=== PATIENT | male | born 1965 | race African-American/Black ===

== ENCOUNTER 2017-02-22 14:05 | Emergency (ER) | payer OTHER ==
[2017-02-22] MEDS ORDERED: Phenergan/Codeine 10-6.25mg/5ml UDCUP ONE (19:27)
[2017-02-22] MEDS ORDERED: predniSONE 20 MG TAB ONE (19:28)
[2017-02-22] MEDS ORDERED: AMOXicillin 250 MG CAP ONE (19:28)
--- NOTE | 2017-02-22 19:48 | RAD ---
CHEST ONE VIEW: 02/22/17 HISTORY: Cough and congestion. Heart size and mediastinum are within normal limits. The lungs are clear of infiltrates. No significa nt bony findings. IMPRESSION: No active intrathoracic disease. POS: [facility]
== END 2017-02-22 19:57 | disposition home or self-care (01) ==
LOC: MADERS 14:05
DX: J20.9 Acute bronchitis, unspecified (principal); I10 Essential (primary) hypertension; Z87.891 Personal history of nicotine dependence
CPT/HCPCS: 71010; J7506

== ENCOUNTER 2018-09-19 10:04 | Emergency (ER) | payer OTHER ==
--- NOTE | 2018-09-19 10:51 | RAD ---
PA AND LATERAL VIEWS CHEST: Date: 09/19/18 FINDINGS: Comparison made with exam of 02/22/17. The heart size is normal. The lungs are expanded without focal areas of consolidation, pneumothoraces , or pleural effusions. No acute osseous abnormalities are seen. IMPRESSION: No radiographic evidence of acute cardiopulmonary process. POS: [facility]
== END 2018-09-19 11:00 | disposition home or self-care (01) ==
LOC: MADERS 10:04
DX: J20.9 Acute bronchitis, unspecified (principal); B97.7 Papillomavirus as the cause of diseases classified elsewhere; I10 Essential (primary) hypertension; Z79.899 Other long term (current) drug therapy; Z87.891 Personal history of nicotine dependence
CPT/HCPCS: 71046

== ENCOUNTER 2018-10-29 02:12 | Emergency (ER) | payer OTHER ==
[2018-10-29 03:01] LABS: #Basophils 0.1 thou/uL (0.0-0.2); #Eosinphils 0.1 thou/uL (0.0-0.7); #Lymphocytes 0.9 thou/uL (1.20-3.40); #Monocytes 0.5 thou/uL (0.11-0.59); #Neutrophils 2.9 thou/uL (1.40-6.50); %Basophils 2.2 % (0.0-1.0); %Eosinophils 2.8 % (0.0-10.0); %Lymphocytes 19.3 % (21.0-51.0); %Monocytes 10.7 % (0.0-10.0); %Neutrophils 65.1 % (42.0-75.0); Hemoglobin 12.7 g/dL (14.0-18.0); Mean Corpuscular HGB CONC 32.3 g/dL (32.0-36.0); Mean Corpuscular Hemoglobin 28.6 pg (27.0-31.0); Mean Corpuscular Volume 88.4 fL (78.0-98.0); Mean Platelet Volume 6.9 fL (7.4-10.4); Platelet Count 204 thou/uL (130-400); RBC Distribution Width 12.7 % (11.5-14.5); Red Blood Cell (RBC) Count 4.44 mill/uL (4.70-6.10); White Blood Cell (WBC) Count 4.4 thou/uL (4.8-10.8)
[2018-10-29] MEDS ORDERED: Promethazine DM 6.25-15mg/5ml 120 ML BOT ONE (03:01)
[2018-10-29] MEDS ORDERED: cefTRIAXone\\ROCEPHIN 1 GM VIAL ONE ×2 (03:12→03:24)
[2018-10-29] MEDS ORDERED: methylPREDNISolone Sod Succ/PF 125 MG/2 ML VIAL ONE (03:12)
[2018-10-29 03:18] LABS: ALT (SGPT) 17 U/L (8-55); AST (SGOT) 21 U/L (5-34); Alkaline Phosphatase 57 U/L (40-150); Anion Gap 13 mmol/L (10-20); BUN (Urea Nitrogen) 14 mg/dL (8.4-25.7); Bilirubin, Total 0.4 mg/dL (0.2-1.2); CK (CPK) 290 U/L (30-200); Calc. Creatinine Clearance 0 mL/min (70-130); Calcium 8.5 mg/dL (7.8-10.44); Carbon Dioxide 23 mmol/L (22-29); Chloride 105 mmol/L (98-107); Estimated GFR-MDRD 86; Globulin 3.2 g/dL (2.4-3.5); Glucose 107 mg/dL (70-105); Protein, Total 7.2 g/dL (6.0-8.3); Sodium 137 mmol/L (136-145)
[2018-10-29] MEDS ORDERED: Sodium Chloride 0.9% 250 ML 250 ML ONE (03:25)
--- NOTE | 2018-10-29 09:03 | RAD ---
CHEST 1 VIEW PORTABLE: Date: 10/29/18 HISTORY: Cough. COMPARISON: 09/19/18. FINDINGS: Heart size is normal. The lungs are clear. No pneumonia, edema, or pleural effusion. IMPRESSION: No acute intrathoracic disease. POS: [facility]
== END 2018-10-29 04:22 | disposition home or self-care (01) ==
LOC: MADERS 02:12
DX: J44.1 Chronic obstructive pulmonary disease with (acute) exacerbation (principal); I10 Essential (primary) hypertension; Z87.891 Personal history of nicotine dependence
CPT/HCPCS: 71045; 80053; 82550; 85025; 87804; 96365; 96375; J0696; J2930; J7050; J7620

== ENCOUNTER 2019-01-08 09:49 | Outpatient (CLI) | payer OTHER ==
--- NOTE | 2019-01-08 10:03 | RAD ---
2 view chest: [01/08/2019] Comparion:09/19/2018 HISTORY: Syncope FINDINGS: Heart and mediastinal contours are grossly unremarkable. No pneumothorax or pleural fluid. No focal consolidation or alveolar edema. IMPRESSION: No acute findings.
== END 2019-01-08 09:50 | disposition home or self-care (01) ==
LOC: MADRAD 09:49
PROVIDERS: ATTEND Family Medicine
DX: R55 Syncope and collapse (principal)
CPT/HCPCS: 71046

== ENCOUNTER 2019-03-03 09:13 | Emergency (ER) | payer OTHER ==
--- NOTE | 2019-03-19 10:28 | ER ---
DATE OF SERVICE: ADDENDUM: HISTORY OF PRESENT ILLNESS: Cough for the last week. No fevers or chills. Saw 3 weeks ago, but does not believe that is related to this visit. The patient does have some sinus congestion and frontal headache that is mild. He also notes some chest pain due to coughing so much. No chest pain at rest and no dyspnea on exertion. No pain when not coughing. He also has a sore throat. Would like a cough syrup that he has gotten in the past and this has worked well for him. No fevers or chills. Job ID: [id number]
== END 2019-03-03 10:12 | disposition home or self-care (01) ==
LOC: MADERS 09:13
DX: J01.90 Acute sinusitis, unspecified (principal); I10 Essential (primary) hypertension; Z87.891 Personal history of nicotine dependence
CPT/HCPCS: 99283

== ENCOUNTER 2019-05-22 14:53 | Outpatient (CLI) | payer OTHER ==
--- NOTE | 2019-05-22 15:30 | RAD ---
TWO VIEWS CHEST: HISTORY: COPD, acute bronchitis. COMPARISON: 01/08/2019. FINDINGS: Cardiac silhouette and pulmonary vasculature are within normal limits. The lungs remain clear. Ther e has been no interval change from the prior exam. IMPRESSION: No acute cardiopulmonary process. POS: [facility]
== END 2019-05-22 14:54 | disposition home or self-care (01) ==
LOC: MADRAD 14:53
PROVIDERS: ATTEND Family Medicine
DX: J44.0 Chronic obstructive pulmonary disease with (acute) lower respiratory infection (principal); J20.9 Acute bronchitis, unspecified
CPT/HCPCS: 71046

== ENCOUNTER 2020-11-16 06:21 | Outpatient (CLI) | payer OTHER ==
[2020-11-16 06:59] LABS: #Basophils 0.1 thou/uL (0.0-0.2); #Eosinphils 0.2 thou/uL (0.0-0.7); #Lymphocytes 1.1 thou/uL (1.20-3.40); #Monocytes 0.5 thou/uL (0.11-0.59); #Neutrophils 3.4 thou/uL (1.40-6.50); %Basophils 2.3 % (0.0-1.0); %Monocytes 8.8 % (0.0-10.0); %Neutrophils 63.9 % (42.0-75.0); Hemoglobin 13.9 g/dL (14.0-18.0); Mean Corpuscular HGB CONC 30.6 g/dL (32.0-36.0); Mean Corpuscular Hemoglobin 28.8 pg (27.0-31.0); Mean Corpuscular Volume 94.1 fL (78.0-98.0); Mean Platelet Volume 7.2 fL (7.4-10.4); Platelet Count 267 thou/uL (130-400); RBC Distribution Width 12.8 % (11.5-14.5); Red Blood Cell (RBC) Count 4.82 mill/uL (4.70-6.10); White Blood Cell (WBC) Count 5.4 thou/uL (4.8-10.8)
[2020-11-16 07:16] LABS: ALT (SGPT) 25 U/L (8-55); AST (SGOT) 27 U/L (5-34); Alkaline Phosphatase 65 U/L (40-110); Anion Gap 14 mmol/L (10-20); BUN (Urea Nitrogen) 15 mg/dL (8.4-25.7); Bilirubin, Total 0.5 mg/dL (0.2-1.2); Calc. Creatinine Clearance 0 mL/min (70-130); Calcium 9.2 mg/dL (7.8-10.44); Carbon Dioxide 22 mmol/L (22-29); Cardiac Risk 6.1 (Less than 4.5); Chloride 107 mmol/L (98-107); Cholesterol 165 mg/dl (< 200 Desired); Globulin 3.2 g/dL (2.4-3.5); Glucose 105 mg/dL (70-105); HDL Cholesterol 27 mg/dL (>60 Neg Risk); LDL Cholesterol, Calculated 114 mg/dL; Potassium 4.3 mmol/L (3.5-5.1); Protein, Total 7.2 g/dL (6.0-8.3); Sodium 139 mmol/L (136-145); Triglycerides 122 mg/dL (Less than 150)
== END 2020-11-16 06:22 | disposition home or self-care (01) ==
LOC: MADLAB 06:21
PROVIDERS: ATTEND Family Medicine
DX: Z00.01 Encounter for general adult medical examination with abnormal findings (principal)
CPT/HCPCS: 80053; 80061; 85025; G0103

== ENCOUNTER 2021-04-28 04:45 | Emergency (ER) | payer BC ==
[2021-04-28] MEDS ORDERED: Benzonatate 100 MG CAP ONE (05:32)
[2021-04-28] MEDS ORDERED: guaiFENesin/Codeine Phosphate 100 mg/10 mg 5 ml UD Cup ONE (05:58)
[2021-04-28 07:11] LABS: ALT (SGPT) 15 U/L (8-55); AST (SGOT) 19 U/L (5-34); Albumin 3.8 g/dL (3.5-5.0); Alkaline Phosphatase 65 U/L (40-110); Anion Gap 14 mmol/L (10-20); BUN (Urea Nitrogen) 14 mg/dL (8.4-25.7); Bilirubin, Total 0.3 mg/dL (0.2-1.2); Calc. Creatinine Clearance 0 mL/min (70-130); Calcium 8.7 mg/dL (7.8-10.44); Carbon Dioxide 22 mmol/L (22-29); Cardiac Risk 5.5 (Less than 4.5); Chloride 109 mmol/L (98-107); Cholesterol 148 mg/dl (< 200 Desired); Globulin 3.1 g/dL (2.4-3.5); Glucose 120 mg/dL (70-105); HDL Cholesterol 27 mg/dL (>60 Neg Risk); LDL Cholesterol, Calculated 100 mg/dL; Potassium 4.3 mmol/L (3.5-5.1); Protein, Total 6.9 g/dL (6.0-8.3); Sodium 141 mmol/L (136-145); Triglycerides 105 mg/dL (Less than 150)
[2021-04-28 17:22] LABS: SARS-CoV-2 PCR by NAA Not Detected (NotDetected)
== END 2021-04-28 06:11 | disposition home or self-care (01) ==
LOC: MADERS 04:45
DX: J44.1 Chronic obstructive pulmonary disease with (acute) exacerbation (principal); R05.9 Cough, unspecified; T46.5X5A Adverse effect of other antihypertensive drugs, initial encounter; I10 Essential (primary) hypertension; Z87.891 Personal history of nicotine dependence; Z20.822 Contact with and (suspected) exposure to COVID-19
CPT/HCPCS: 71045; 80053; 80061; 87804; 96372; J1040; J7620; U0003; U0005

== ENCOUNTER 2021-08-12 22:20 | Emergency (ER) | payer BC ==
[2021-08-12] MEDS ORDERED: methylPREDNISolone Sod Succ/PF 125 MG/2 ML VIAL ONE (23:05)
[2021-08-12] MEDS ORDERED: Magnesium 2 GM/50 ML BAG (IN WATER) ONE (23:05)
[2021-08-12] MEDS ORDERED: Aspirin Chewable 81 MG TAB ONE (23:05)
[2021-08-12] MEDS ORDERED: Sodium Chloride 0.9% 100 ML ONE (23:06)
[2021-08-12] MEDS ORDERED: cefTRIAXone\\ROCEPHIN 1 GM VIAL ONE (23:06)
[2021-08-12] MEDS ORDERED: Azithromycin 500 MG VIAL ONE (23:07)
[2021-08-12] MEDS ORDERED: Sodium Chloride 0.9% 250 ML 250 ML ONE (23:07)
[2021-08-12 23:33] LABS: Band 3 % (5-11); Eosinophils 1 % (0-10); Lymphocytes 28 % (21-51); MDiff Complete? YES; Mean Corpuscular HGB CONC 31.1 g/dL (32.0-36.0); Mean Corpuscular Hemoglobin 27.5 pg (27.0-31.0); Mean Corpuscular Volume 88.5 fL (78.0-98.0); Mean Platelet Volume 8.4 fL (7.4-10.4); Monocytes 3 % (0-10); Neutrophil 65 % (42-75); Platelet Count 221 thou/uL (130-400); Platelet Morphology Comment Appears Adequate; RBC Distribution Width 12.6 % (11.5-14.5); RBC Morphology Normal; Red Blood Cell (RBC) Count 4.72 mill/uL (4.70-6.10); White Blood Cell (WBC) Count 5.6 thou/uL (4.8-10.8)
[2021-08-12 23:37] LABS: ALT (SGPT) 15 U/L (8-55); AST (SGOT) 19 U/L (5-34); Albumin 3.9 g/dL (3.5-5.0); Alkaline Phosphatase 59 U/L (40-110); Anion Gap 17 mmol/L (10-20); BUN (Urea Nitrogen) 17 mg/dL (8.4-25.7); Bilirubin, Total 0.3 mg/dL (0.2-1.2); CK (CPK) 382 U/L (30-200); Calc. Creatinine Clearance 0 mL/min (70-130); Calcium 9.2 mg/dL (7.8-10.44); Carbon Dioxide 22 mmol/L (22-29); Chloride 104 mmol/L (98-107); Globulin 3.4 g/dL (2.4-3.5); Glucose 108 mg/dL (70-105); Potassium 4.1 mmol/L (3.5-5.1); Protein, Total 7.3 g/dL (6.0-8.3); Sodium 139 mmol/L (136-145)
[2021-08-12 23:47] LABS: SARS-CoV-2 NAA Rapid Test DETECTED (NotDetected)
[2021-08-13 00:39] LABS: Bilirubin Negative (Negative); Blood, Urine Negative (Negative); Clarity Clear (Clear); Glucose, Urine (Dipstick) Negative (Negative); Ketone, Urine Negative (Negative); Leukocyte Negative (Negative); Nitrite Negative (Negative); Protein, Urine (Dipstick) Negative (Neg-Trace); Specific Gravity, Urine 1.025 (1.005-1.030); Urobilinogen 0.2 mg/dL (Less than 2); pH, Urine 5.5 (5.0-9.0)
== END 2021-08-13 01:00 | disposition home or self-care (01) ==
LOC: MADERS 22:20
DX: U07.1 COVID-19 (principal); J44.1 Chronic obstructive pulmonary disease with (acute) exacerbation; I10 Essential (primary) hypertension; J44.9 Chronic obstructive pulmonary disease, unspecified; Z87.891 Personal history of nicotine dependence; Z79.899 Other long term (current) drug therapy
CPT/HCPCS: 71045; 80053; 81003; 82550; 83605; 84484; 85025; 87040; 87086; 93005; 94640; 94760; 96365; 96367; 96375; J0456; J0696; J2930; J3475; J3490; J7050; J7620

== ENCOUNTER 2023-03-29 10:47 | Outpatient (CLI) | payer OTHER | END 2023-03-29 10:48 | disposition home or self-care (01) | LOC: MADRAD 10:47 | PROVIDERS: ATTEND Internal Medicine | DX: U07.1 COVID-19 (principal) | CPT/HCPCS: 71046 ==

== ENCOUNTER 2023-04-26 19:08 | Emergency (ER) | payer OTHER ==
[2023-04-26] MEDS ORDERED: Benzonatate 100 MG CAP ONE (19:42)
== END 2023-04-26 19:48 | disposition home or self-care (01) ==
LOC: MADERS 19:08
DX: J06.9 Acute upper respiratory infection, unspecified (principal); I10 Essential (primary) hypertension; J44.9 Chronic obstructive pulmonary disease, unspecified; Z87.891 Personal history of nicotine dependence; Z79.82 Long term (current) use of aspirin
CPT/HCPCS: 99283

== ENCOUNTER 2024-12-17 11:36 | Outpatient (CLI) | payer OTHER ==
[2024-12-17 12:21] LABS: Hematocrit 42.8 % (42.0-52.0); Hemoglobin 13.1 g/dL (14.0-18.0); Mean Corpuscular Hemoglobin 28.0 pg (27.0-31.0); Mean Corpuscular Volume 91.2 fl (78.0-98.0); Platelet Count 300 10x3/uL (130-400); Red Blood Cell (RBC) Count 4.69 mill/uL (4.70-6.10); White Blood Cell (WBC) Count 4.9 10x3/uL (4.8-10.8)
[2024-12-17 12:34] LABS: Albumin 3.7 g/dL (3.1-4.5); Anion Gap 13 mmol/L (10-20); BUN (Urea Nitrogen) 15 mg/dL (8.4-25.7); BUN/Creatinine Ratio 18.07; Calc. Creatinine Clearance 0 mL/min (70-130); Calcium 8.7 mg/dL (7.8-10.44); Carbon Dioxide 23 mmol/L (23-31); Chloride 106 mmol/L (98-107); Glucose 103 mg/dL (80-115); Glucose, Urine (Dipstick) Negative (Negative); Leukocyte Negative (Negative); Potassium 4.3 mmol/L (3.5-5.1); Protein, Urine (Dipstick) Negative (Neg-Trace); Sodium 138 mmol/L (136-145); Specific Gravity, Urine 1.020 (1.005-1.030)
[2024-12-17 12:38] LABS: Bacteria/HPF Rare-Few HPF (None Seen); RBC/HPF 0-3 HPF (0-3); WBC/HPF 0-3 HPF (0-3)
[2024-12-17 16:27] LABS: Protein, Urine Random Quant Less than 10 mg/dL (1-14)
== END 2024-12-17 11:37 | disposition home or self-care (01) ==
LOC: MADLAB 11:36
PROVIDERS: ATTEND Internal Medicine Nephrology
DX: I10 Essential (primary) hypertension (principal)
CPT/HCPCS: 36415; 80069; 81001; 82570; 83970; 84156; 85027